=== PATIENT | female | born 1950 ===

== ENCOUNTER 2025-06-18 22:56 | Emergency (ER) | payer MEDICARE, OTHER ==
[2025-06-18 23:20] VITALS: BP 188/74; PULSE 88
[2025-06-18] MEDS: Take Home: Doxycycline 100 MG Cap, 4 Cap Pack PO ONE (23:36)
== END 2025-06-18 23:49 | disposition home or self-care (01) ==
LOC: DL.ED 22:56
DX: S80.862A Insect bite (nonvenomous), left lower leg, initial encounter (principal); E78.00 Pure hypercholesterolemia, unspecified; I10 Essential (primary) hypertension; E03.9 Hypothyroidism, unspecified; K21.9 Gastro-esophageal reflux disease without esophagitis; Z79.82 Long term (current) use of aspirin; Z79.899 Other long term (current) drug therapy; Z79.890 Hormone replacement therapy; W57.XXXA Bitten or stung by nonvenomous insect and other nonvenomous arthropods, initial encounter; Y93.89 Activity, other specified
CPT/HCPCS: 99282; A9270